=== PATIENT | male | born 1995 | race African-American/Black ===

== ENCOUNTER 2023-06-11 13:29 | Outpatient (AMB) | payer OTHER, SELFPAY ==
--- NOTE | 2023-06-11 14:56 | MHC.OFFWIV ---
Intake Vital Signs 06/11/23 15:03 Height 6 ft Weight 234 lb BMI 31.7 BP 130/74 Blood Pressure Location Lt brachial Position Sitting Pulse 78 Pulse Source Pulse Oximeter Temp 101.0 F H Temp Source Oral Pulse Oximetry (%) 100 Oxygen Delivery Method Room Air Intake Visit Reasons: EP chills body aches 2+ tests [id number] Intake Note: Patient is here with question of Covid, has had 2 positive tests, last one being yesterday . Patient Tobacco Use Status: Never used Tobacco Allergies No Known Allergies Allergy (Verified 06/11/23 14:58) Do you need a note to return to daycare/school/sports/work: Yes HPI HPI Comments History of Present Illness Details Patient presents to the walk in today for covid. Symptoms started yesterday. He took 2 covid tests at home that were positive. He is in the and they require documentation of a positive result Patient reports cough, fever, body aches, chills, decreased po intake. He has been taking OTC medications and using his albuterol MDI. Requesting refill of MDI. Patient would also like to start antivirals for Covid as he wants to feel better LIAM. Patient denies chest pain, dyspnea, palpitations, vomiting, diarrhea. PFSH Social History Patient Tobacco Use Status: Never used Tobacco Review of Systems Const All systems reviewed & are unremarkable except as noted in HPI and below Physical Exam Vital Signs: Last Vital Signs Temp 101.0 F H 06/11/23 15:03 Pulse 78 06/11/23 15:03 BP 130/74 06/11/23 15:03 Pulse Ox 100 06/11/23 15:03 Oxygen Delivery Method Room Air 06/11/23 15:03 BMI result Body Mass Index 31.7 General: awake, alert, oriented. Answers questions appropriately. Fully engaged in examination. Skin: warm, dry, intact HEENT: Normocephalic. Hearing intact. no lymphadenopathy. PP without erythema or exudate. TMs intact bilaterally without erythema. Cardiac: External chest normal in appearance. Respiratory: No cough, audible wheezing or stridor. LSCTAB. Abdomen: without gross distension. MS: No obvious swelling or deformities. Neurological: Oriented to person, place, time and situation. Thought process intact. Psychiatric: Appropriate mood and affect. Good judgment and insight. Assessment & Plan Assessment & Plan (1) COVID-19: Code(s): U07.1 - COVID-19 Plan Covid positive X 2 tests at home. SARS-CoV2/FLU/RSV swab collected per patient request as needed by , results pending. Patient aware he will be called with results. Benzonatate 100mg po bid as needed Albuterol MDI as needed, go to ER if using more than prescribed Paxlovid as prescribed. Lengthy discussion with patient about antivirals for Covid, he is on day 2 and would like to start antiviral treatment. Rest, drink plenty of fluids, tylenol or motrin as needed. Recommend taking OTC nasal decongestants or flonase. Follow up with pcp or in clinic for any new or worsening symptoms. Go to ER for shortness of breath, chest pain, palpitations, weakness, dizziness. Orders: Orders SARS-CoV2/FLU/RSV Today J06.9 - Acute upper respiratory infection, unspecified Medications: New nirmatrelvir-ritonavir 300 mg (150 mg x 2)-100 mg (Paxlovid) take TWO 150 mg tablets of nirmatrelvir with ONE 100 mg tablet of ritonavir twice daily for 5 days PO 30 ea 0RF albuterol sulfate 90 mcg/actuation 1 inh inhalation QID PRN 6.7 grams 0RF shortness of breath or wheezing benzonatate 100 mg PO BID 10 days PRN 20 caps 0RF cough Coding Level of Care Code Est Pt Level 4 (67176) Diagnoses COVID-19 U07.1
[2023-06-11 15:03] VITALS: BP 130/74; PULSE 78; TEMP 38.3; O2SAT 100; BMI 31.7
== END 2023-06-11 16:01 | disposition home or self-care (01) ==
PROVIDERS: PCP Nurse Practitioner Family; Visit Provider Registered Nurse Emergency
DX: U07.1 COVID-19 (principal)
CPT/HCPCS: 99214

== ENCOUNTER 2023-06-11 15:44 | Outpatient (REF) | payer OTHER, SELFPAY ==
[2023-06-12 12:20] LABS: Influenza A PCR NEGATIVE (Negative); Influenza B PCR NEGATIVE (Negative); Resp Syncy Virus RNA Qual PCR NEGATIVE (Negative); SARS COV2 PCR INHOUSE POSITIVE (Negative)
== END 2023-06-11 15:45 | disposition home or self-care (01) ==
LOC: HO.LAB 15:44
PROVIDERS: Visit Provider Registered Nurse Emergency
DX: J06.9 Acute upper respiratory infection, unspecified (principal); Z11.52 Encounter for screening for COVID-19; Z20.828 Contact with and (suspected) exposure to other viral communicable diseases
CPT/HCPCS: 0241U

== ENCOUNTER 2023-06-19 10:31 | Outpatient (AMB) | payer OTHER, SELFPAY ==
--- NOTE | 2023-06-19 10:32 | MHC.OFFWIV ---
Intake Vital Signs 06/19/23 10:33 Height 6 ft Weight 233 lb BMI 31.6 BP 122/76 Blood Pressure Location Rt brachial Position Sitting Pulse 73 Pulse Source Pulse Oximeter Temp 98.4 F Temp Source Oral Pulse Oximetry (%) 99 Oxygen Delivery Method Room Air Intake Visit Reasons: Est/congestion (lobby masked) Intake Note: Pt is here post COVID. Pt states he is feeling a lot better than last week and is requesting to be re tested for his employer. Patient Tobacco Use Status: Never used Tobacco Allergies No Known Allergies Allergy (Verified 06/19/23 10:33) Do you need a note to return to daycare/school/sports/work: No HPI Est/congestion (lobby masked) HPI Details 27-year-old male presents to the office with a medical request. He tested positive for COVID last week and is feeling 100% better. He has no symptoms. 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 He is here for that reason. PFS Social History Patient Tobacco Use Status: Never used Tobacco Physical Exam Vital Signs: Last Vital Signs Temp 98.4 F 06/19/23 10:33 Pulse 73 06/19/23 10:33 BP 122/76 06/19/23 10:33 Pulse Ox 99 06/19/23 10:33 Oxygen Delivery Method Room Air 06/19/23 10:33 BMI result Body Mass Index 31.6 Const General: cooperative, healthy appearing and comfortable Assessment & Plan Assessment & Plan (1) COVID-19: Code(s): U07.1 - COVID-19 Plan: COVID testing done. Results were given to the patient. Orders: Orders BinaxNOW Covid-19 Ag Today J06.9 - Acute upper respiratory infection, unspecified Coding Level of Care Code Est Pt Level 3 (86624) Diagnoses COVID-19 U07.1
[2023-06-19 10:33] VITALS: BP 122/76; PULSE 73; TEMP 36.9; O2SAT 99; BMI 31.6
== END 2023-06-19 11:09 | disposition home or self-care (01) ==
PROVIDERS: PCP Nurse Practitioner Family; Visit Provider Internal Medicine
DX: U07.1 COVID-19 (principal)
CPT/HCPCS: 99213

== ENCOUNTER 2023-06-19 10:56 | Outpatient (REF) | payer OTHER, SELFPAY ==
[2023-06-19 11:22] LABS: Binax Internal Control QC Valid; Binax Now Covid-19 Ag Negative (Negative); Binax Performed by: PAULP
== END 2023-06-19 10:57 | disposition home or self-care (01) ==
LOC: HO.HMGCLDS 10:56
PROVIDERS: PCP Nurse Practitioner Family; Visit Provider Internal Medicine
DX: Z11.52 Encounter for screening for COVID-19 (principal); J06.9 Acute upper respiratory infection, unspecified
CPT/HCPCS: 87811